=== PATIENT | male | born 1995 | race Caucasian/White ===

== ENCOUNTER → 2017-07-21 | Outpatient (CLI) | payer OTHER ==
--- NOTE | 2017-07-21 15:06 | CPEEG ---
[f rep st] ELECTROENCEPHALOGRAM A 4 HOUR VIDEO EEG. DATE OF STUDY: 07/21/2017 DATE OF INTERPRETATION: 07/21/2017 INTERPRETATION: This 4-hour video EEG recording is normal. There were no potentially epileptogenic abnormalities present in the awake or sleep recordings. During the video EEG monitoring session, the patient did not have any clinical events. REPORT: This 4-hour video EEG contains 9-10 Hz alpha activity to the posterior head regions. There was no abnormal activation at rest, during photic stimulation or hyperventilation. The patient became drowsy and fell into sustained sleep throughout the study. There was no abnormal activation during drowsiness, sleep, or during times of arousal. The patient did not have any clinical events during the video EEG monitoring session. /[id number]/MODL MTDD
== END ==
LOC: FCPNEURO 07:54
PROVIDERS: ATTEND Psychiatry & Neurology Neurology
DX: R56.9 Unspecified convulsions (principal)

== ENCOUNTER → 2018-08-10 | Outpatient (CLI) | payer OTHER | LOC: FIMAGING 09:20 | PROVIDERS: ATTEND Psychiatry & Neurology Neurology | DX: R56.9 Unspecified convulsions (principal) ==

== ENCOUNTER → 2018-08-13 | Outpatient (CLI) | payer OTHER ==
--- NOTE | 2018-08-13 15:59 | CPEEG ---
4-HOUR VIDEO ELECTROENCEPHALOGRAM DATE OF STUDY: 08/13/2018 INTERPRETATION: This 4 hour video-EEG recording is normal. There were no potentially epileptogenic abnormalities present during the awake or sleep recordings. During the video EEG monitoring session, the patient did not have any clinical events. REPORT: This 4 hour video-EEG contains 10 Hz alpha activity over the posterior head regions. There was no abnormal activation at rest, during photic stimulation or hyperventilation. The patient became drowsy and fell into sustained sleep during the study. There was no abnormal activation during drowsiness, sleep, or during times of arousal. The patient did not have any clinical events during the video EEG monitoring session. /[id number]/MODL MTDD
== END ==
LOC: FCPNEURO 09:42
PROVIDERS: ATTEND Psychiatry & Neurology Neurology
DX: R56.9 Unspecified convulsions (principal)